=== PATIENT | male | born 1990 ===

== ENCOUNTER 2017-12-27 18:11 | Emergency (ER) | payer OTHER ==
[2017-12-27 18:21] VITALS: BP 135/86; PULSE 82; RESP 18; TEMP 98.1; O2SAT 99; BMI 30.7
[2017-12-27] MEDS ORDERED: Ciprofloxacin 0.3% OPTH SOLN OS STA (18:32)
--- NOTE | 2017-12-27 18:32 | ED PDOC ---
Arrival/HPI - General Chief Complaint: Eye Problem Time Seen by Provider: 12/27/17 18:25 Historian: Patient - History of Present Illness Narrative History of Present Illness (Text): 12/27/17 18:25 27 y/o male, no significant pmh, nkda, last tetanus under 5 years ago, c/o lt. eye foreign body sensation x 1 hour. Pt. stated that he was driving, rolling down the window, feel a dust went into the left eye, been tearing and feeling foreign body sensation, no vision change as per patient but it's uncomfortable, no headache or neck pain, no palpitation, no other medical or psychological complaints. Past Medical History - Provider Review Nursing Documentation Reviewed: Yes - Infectious Disease Hx of Infectious Diseases: None Family/Social History - Physician Review Nursing Documentation Reviewed: Yes Family/Social History: Unknown Family HX Allergies/Home Meds Allergies/Adverse Reactions: Allergies No Known Allergies Allergy (Verified 12/27/17 18:21) Review of Systems - Review of Systems Constitutional: absent: Fatigue, Fevers Eyes: Other (lt. eye foreign body sensation). absent: Vision Changes ENT: absent: Hearing Changes Respiratory: absent: SOB, Cough Cardiovascular: absent: Chest Pain Gastrointestinal: absent: Abdominal Pain, Diarrhea, Nausea, Vomiting Musculoskeletal: absent: Arthralgias, Back Pain Skin: absent: Rash, Pruritis Psychiatric: absent: Anxiety, Depression, Suicidal Ideation Physical Exam Vital Signs Reviewed: Yes Vital Signs Temp Pulse Resp BP Pulse Ox 12/27/17 18:17 98.1 F 82 18 135/86 99 Temperature: Afebrile Blood Pressure: Normal Pulse: Regular Respiratory Rate: Normal Appearance: Positive for: Well-Appearing, Non-Toxic, Comfortable Pain Distress: None Mental Status: Positive for: Alert and Oriented X 3 - Systems Exam Head: Present: Atraumatic, Normocephalic Pupils: Present: PERRL, Other (Eyes: lt. eye w/o correction 20/25 vs. rt. eye w/ o correction 20/20, bilateral upper and lower eyelids with no swelling and no visible foreign bodies, no hyphema or subconjunctival hemorrage, lt. eye fluorsein strip stain show there is mild superficial corneal abrasion noted on the 9 to 12 o clock region with no ulcers with negative sven signs, no periorbital swelling, no visible foreign bodies. ) Extroacular Muscles: Present: EOMI Conjunctiva: Present: Normal Mouth: Present: Moist Mucous Membranes Nose (External): Present: Atraumatic. No: Abrasion, Contusion, Laceration Nose (Internal): Present: Normal Inspection, No Active Bleeding. No: Rhinorrhea , Septal Hematoma, Epistaxis Neck: Present: Normal Range of Motion Respiratory/Chest: Present: Clear to Auscultation, Good Air Exchange. No: Respiratory Distress, Accessory Muscle Use Cardiovascular: Present: Regular Rate and Rhythm, Normal S1, S2. No: Murmurs Abdomen: No: Tenderness, Distention, Peritoneal Signs Back: Present: Normal Inspection Upper Extremity: Present: Normal Inspection. No: Cyanosis, Edema Lower Extremity: Present: Normal Inspection. No: Edema Neurological: Present: GCS=15, CN II-XII Intact, Speech Normal Skin: Present: Warm, Dry, Normal Color. No: Rashes Psychiatric: Present: Alert, Oriented x 3, Normal Insight, Normal Concentration Medical Decision Making ED Course and Treatment: 12/27/17 18:55 -Physical exam of left eye show there is no dendritic lesions. -Ciloxin/eye patch -All examination and plan of care discussed with patient with outpatient opthalmologist follow up . -Discharge home with ciloxin, eye patch for 24 hours, take tylenol or motrin for pain as needed, follow up with your own pmd and opthalmologist within 2 days , return to the ER for any new or worsening signs or symptoms. - PA / WAREHOUSE RECORD CLERK / Resident Statement MD/DO has reviewed & agrees with the documentation as recorded. Disposition/Present on Arrival - Present on Arrival Any Indicators Present on Arrival: No History of DVT/PE: No History of Uncontrolled Diabetes: No Urinary Catheter: No History of Decub. Ulcer: No History Surgical Site Infection Following: None - Disposition Have Diagnosis and Disposition been Completed?: Yes Diagnosis: Corneal abrasion Disposition: HOME/ ROUTINE Disposition Time: 18:56 Patient Plan: Discharge Condition: GOOD Additional Instructions: -Discharge home with ciloxin, eye patch for 24 hours, take tylenol or motrin for pain as needed, follow up with your own pmd and opthalmologist within 2 days , return to the ER for any new or worsening signs or symptoms. Prescriptions: Ciprofloxacin 0.3% [Ciloxan 0.3% Ophth SOLN] 2 drop OS Q4 #1 bottle Referrals: Lm Milton MD [Staff Provider] - Follow up with primary Forms: WORK NOTE
== END 2017-12-27 19:09 | disposition home or self-care (01) ==
LOC: ED 18:11
DX: S05.02XA Injury of conjunctiva and corneal abrasion without foreign body, left eye, initial encounter (principal); X58.XXXA Exposure to other specified factors, initial encounter